=== PATIENT | male | born 1965 | race African-American/Black ===

== ENCOUNTER → 2019-06-11 | Outpatient (CLI) | payer OTHER ==
[~2019-06-11] MED LIST: LISINOPRIL20 MG PO
== END ==
LOC: COL.RAD 09:04
DX: M79.89 Other specified soft tissue disorders (principal)

== ENCOUNTER → 2019-06-17 | Outpatient (CLI) | payer OTHER | LOC: COL.RAD 08:53 | DX: M79.89 Other specified soft tissue disorders (principal) ==